=== PATIENT | male | born 2000 | race Caucasian/White ===

== ENCOUNTER 2022-07-30 13:58 | Inpatient (IN) ==
--- NOTE | 2022-07-30 14:33 | Emergency Department Note ---
Impression & Plan Psychosis, Anxiety, Acute paranoia ED Provider Note NAME: HARRIS STEVENS AGE: 22 SEX: M : 2000 ARRIVES VIA: [employer] INFORMANT: Patient, the police, the patient's significant other ED PROVIDER(S): Doroteo Hendrix DO CHIEF COMPLAINT: Psychiatric evaluation HPI: The patient is a 22-year-old male who presented to the emergency department with police for possible psychiatric condition. The patient does not give much history. The patient does answer questions but mostly mumbles a phrase over and over again, "[place]". The patient does have a history of psychosis in the past. He does take Depakote. It is unclear if the patient has been compliant with his outpatient medications. There was no reported trauma. There was no reported fever. There is been no reported vomiting. The patient himself states that he is not been eating or sleeping well. He states that he is urinating because of problems with his significant other. The patient is denying any suicidal or homicidal ideation. ROS: See above HPI for pertinent positives & negatives. A total of 10 systems reviewed and were otherwise negative. PAST MEDICAL HISTORY: See Below PAST SURGICAL HISTORY: See Below FAMILY HISTORY: See Below SOCIAL HISTORY: See Below HOME MEDICATIONS: See Below ALLERGIES: See Below VITALS: See Below PHYSICAL EXAMINATION: GENERAL: The patient is awake and alert. He is resting comfortably and seated on the bed. He is saying his phrase over and over again. EYES: The conjunctivae are clear. The pupils are round and reactive. EARS, NOSE, MOUTH AND THROAT: The nose is without any evidence of any deformity. NECK: The neck is nontender and supple. RESPIRATORY: Normal respiratory effort is noted there is no evidence of wheezing rhonchi or rales CARDIOVASCULAR: Regular rate and rhythm noted there no murmurs rubs or gallops normal S1 normal S2. GASTROINTESTINAL: The abdomen is soft. Abdomen is nontender. MUSCULOSKELETAL/EXTREMITIES: There is no evidence of gross deformity full range of motion is noted in the hips and shoulders. SKIN: There is no obvious evidence of any rash. There are no petechiae, pallor or cyanosis noted. NEUROLOGIC: Patient is awake alert and oriented x3 strength is symmetric patellar reflexes are 2+ bilaterally PSYCH: The patient makes poor eye contact mostly evaluation. Currently the patient is denying any suicidal homicidal ideation. MEDICAL DECISION MAKING: The patient is a 22-year-old male who presented to the emergency department for a mental health evaluation. The patient does have a history of psychosis. According to his significant other he has been acting erratic lately. The pat mane was brought to the emergency department by police. He was evaluated in the emergency department and medically cleared. Initially he was not willing to talk but eventually he was able to talk with the mental health upper caser. He was much more calm and agreeable to evaluation. At this time the patient is agreeable to voluntary admission. Bed search is currently underway. Triage Nursing notes reviewed. Prior medical records reviewed Vital Signs: reviewed and remarkable for elevated blood pressure. Differential diagnosis: Mood disorder, infection, hypoglycemia, electrolyte abnormalities, cardiac sources, intracerebral event, toxicologic, trauma, neurologic, as well as other pathologies. ER treatment provided: See below Diagnostics interpreted by me: ECG: none Laboratory studies: As stated above and show below. Imaging studies: See below Consultation(s): none Past Med/Surg History Social History Smoking Status: Unknown if ever smoked Preferred Language: Georgian Feels Safe at Home: Yes Allergies Allergies Allergy/AdvReac Type Severity Reaction Status Date / Time fluphenazine [From Prolixin] AdvReac Shakiness Verified 07/30/22 15:38 Home Meds Home Medications Medication Instructions Recorded Confirmed benztropine 2 mg PO DAILY 07/30/22 07/30/22 divalproex 500 mg tablet,delayed 500 mg PO BID 07/30/22 07/30/22 release (Depakote) Results & Data (ED) Vital Signs Vital Signs - 24 hr 07/30/22 14:16 07/30/22 14:16 Temperature 36.8 C Temperature Source Oral Pulse Rate 78 Respiratory Rate 18 18 Respiratory Effort / Characteristics Non-Labored Non-Labored Respiratory Depth Normal Normal Respiratory Pattern Regular Regular Blood Pressure 156/88 H Blood Pressure Mean 110 Blood Pressure Position Lying Pulse Oximetry 99 Oxygen Delivery Method Room Air Sepsis Recent Fever Within 48 Hours No Sepsis New/Unexplained Change in Mental Status No Sepsis Action Taken by Nursing No Action Required Home Medications Current Medication List: was personally reviewed by me Laboratory Data Attestation: I reviewed the patient's lab results. Result diagrams: 07/30/22 14:33 07/30/22 14:33 Lab Results 07/30/22 07/30/22 07/30/22 Range/Units 14:33 14:33 14:33 WBC 8.40 (4.8-10.8) K/ul RBC 4.69 (4.63-6.08) M/uL Hgb 15.5 (14.0-18.0) g/dl Hct 42.7 (40.1-51.0) % MCV 91.0 (80.0-100.0) fL MCH 33.0 (25.0-34.0) pg MCHC 36.3 H (32.0-36.0) g/dL RDW Std Deviation 38.0 (36.4-46.3) fL RDW Coeff of Dillon 11.4 L (11.5-14.5) % Plt Count 258 (130-400) K/uL MPV 9.7 (9.4-12.4) fL Immature Gran % (Auto) 0.1 % Neut % (Auto) 73.8 % Lymph % (Auto) 17.5 % [place] % (Auto) 7.9 % Eos % (Auto) 0.5 % Baso % (Auto) 0.2 % Neut # (Auto) 6.20 (1.4-6.5) K/uL Lymph # (Auto) 1.47 (1.2-3.4) K/uL [place] # (Auto) 0.66 (0.24-0.82) K/uL Eos # (Auto) 0.04 (0-0.50) K/uL Baso # (Auto) 0.02 (0-0.2) K/uL Immature Gran # (Auto) 0.01 (0.00-0.02) K/uL Sodium 139 (136-145) mmol/L Potassium 3.9 (3.5-5.1) mmol/L Chloride 106 (98-107) mmol/L Carbon Dioxide 26 (21-32) mmol/L Anion Gap 7 (3-11) BUN 14 (6-23) mg/dl Creatinine 0.93 (0.6-1.4) mg/dl Est Cr Clr Drug Dosing Not Reportable Est GFR ( Amer) 133.6 ml/min Est GFR (Non-Af Amer) 115.3 ml/min BUN/Creatinine Ratio 15.1 (10-20) Glucose 100 H (70-99(Fasting)) mg/dl Calcium 8.7 (8.5-10.1) mg/dl Total Bilirubin 0.6 (0.2-1.0) mg/dl AST 34 (13-39) U/L ALT 51 (7-52) U/L Alkaline Phosphatase 75 (34-104) U/L Total Protein 7.2 (6.0-8.3) gm/dl Albumin 4.4 (3.4-5.0) gm/dl Globulin 2.8 (2.5-4.0) gm/dl Albumin/Globulin Ratio 1.6 (0.9-2) TSH 1.776 (0.300-4.500) uIu/ml Urine Color Urine Appearance (Clear) Urine pH (4.5-7.5) Ur Specific [place] (1.000-1.030) Urine Protein (Negative) Urine Glucose (UA) (Negative) Urine Ketones (Negative) Urine Blood (Negative) Urine Nitrite (Negative) Urine Bilirubin (Negative) Urine Urobilinogen (Negative) Ur Leukocyte Esterase (Negative) Salicylates (3.0-30) mg/dl Urine Opiates Screen (Neg) Ur Methadone, Qual (Neg) Acetaminophen (10-30) ug/ml Urine Barbiturates (Neg) Valproic Acid (50-100) mcg/ml Ur Phencyclidine (PCP) (Neg) U Amphetamin/Meth Scrn (Neg) MDMA (Ecstasy) Screen (Neg) U Benzodiazepines Scrn (Neg) Ur Cocaine Metabolite (Neg) U Marijuana (THC) Screen (Neg) Ethyl Alcohol mg/dL (<10.0) mg/dl SARS-CoV-2, RNA, NAAT (NEGATIVE) 07/30/22 07/30/22 07/30/22 Range/Units 14:33 14:33 14:33 WBC (4.8-10.8) K/ul RBC (4.63-6.08) M/uL Hgb (14.0-18.0) g/dl Hct (40.1-51.0) % MCV (80.0-100.0) fL MCH (25.0-34.0) pg MCHC (32.0-36.0) g/dL RDW Std Deviation (36.4-46.3) fL RDW Coeff of Dillon (11.5-14.5) % Plt Count (130-400) K/uL MPV (9.4-12.4) fL Immature Gran % (Auto) % Neut % (Auto) % Lymph % (Auto) % [place] % (Auto) % Eos % (Auto) % Baso % (Auto) % Neut # (Auto) (1.4-6.5) K/uL Lymph # (Auto) (1.2-3.4) K/uL [place] # (Auto) (0.24-0.82) K/uL Eos # (Auto) (0-0.50) K/uL Baso # (Auto) (0-0.2) K/uL Immature Gran # (Auto) (0.00-0.02) K/uL Sodium (136-145) mmol/L Potassium (3.5-5.1) mmol/L Chloride (98-107) mmol/L Carbon Dioxide (21-32) mmol/L Anion Gap (3-11) BUN (6-23) mg/dl Creatinine (0.6-1.4) mg/dl Est Cr Clr Drug Dosing Est GFR ( Amer) ml/min Est GFR (Non-Af Amer) ml/min BUN/Creatinine Ratio (10-20) Glucose (70-99(Fasting)) mg/dl Calcium (8.5-10.1) mg/dl Total Bilirubin (0.2-1.0) mg/dl AST (13-39) U/L ALT (7-52) U/L Alkaline Phosphatase (34-104) U/L Total Protein (6.0-8.3) gm/dl Albumin (3.4-5.0) gm/dl Globulin (2.5-4.0) gm/dl Albumin/Globulin Ratio (0.9-2) TSH (0.300-4.500) uIu/ml Urine Color Yellow Urine Appearance Clear (Clear) Urine pH 6.0 (4.5-7.5) Ur Specific [place] 1.009 (1.000-1.030) Urine Protein Negative (Negative) Urine Glucose (UA) Negative (Negative) Urine Ketones Negative (Negative) Urine Blood Negative (Negative) Urine Nitrite Negative (Negative) Urine Bilirubin Negative (Negative) Urine Urobilinogen Negative (Negative) Ur Leukocyte Esterase Negative (Negative) Salicylates < 3.0 L (3.0-30) mg/dl Urine Opiates Screen (Neg) Ur Methadone, Qual (Neg) Acetaminophen < 3 L (10-30) ug/ml Urine Barbiturates (Neg) Valproic Acid 39 L (50-100) mcg/ml Ur Phencyclidine (PCP) (Neg) U Amphetamin/Meth Scrn (Neg) MDMA (Ecstasy) Screen (Neg) U Benzodiazepines Scrn (Neg) Ur Cocaine Metabolite (Neg) U Marijuana (THC) Screen (Neg) Ethyl Alcohol mg/dL < 10.0 (<10.0) mg/dl SARS-CoV-2, RNA, NAAT (NEGATIVE) 07/30/22 07/30/22 Range/Units 14:33 14:33 WBC (4.8-10.8) K/ul RBC (4.63-6.08) M/uL Hgb (14.0-18.0) g/dl Hct (40.1-51.0) % MCV (80.0-100.0) fL MCH (25.0-34.0) pg MCHC (32.0-36.0) g/dL RDW Std Deviation (36.4-46.3) fL RDW Coeff of [place] (11.5-14.5) % Plt Count (130-400) K/uL MPV (9.4-12.4) fL Immature Gran % (Auto) % Neut % (Auto) % Lymph % (Auto) % [place] % (Auto) % Eos % (Auto) % Baso % (Auto) % Neut # (Auto) (1.4-6.5) K/uL Lymph # (Auto) (1.2-3.4) K/uL [place] # (Auto) (0.24-0.82) K/uL Eos # (Auto) (0-0.50) K/uL Baso # (Auto) (0-0.2) K/uL Immature Gran # (Auto) (0.00-0.02) K/uL Sodium (136-145) mmol/L Potassium (3.5-5.1) mmol/L Chloride (98-107) mmol/L Carbon Dioxide (21-32) mmol/L Anion Gap (3-11) BUN (6-23) mg/dl Creatinine (0.6-1.4) mg/dl Est Cr Clr Drug Dosing Est GFR ( Amer) ml/min Est GFR (Non-Af Amer) ml/min BUN/Creatinine Ratio (10-20) Glucose (70-99(Fasting)) mg/dl Calcium (8.5-10.1) mg/dl Total Bilirubin (0.2-1.0) mg/dl AST (13-39) U/L ALT (7-52) U/L Alkaline Phosphatase (34-104) U/L Total Protein (6.0-8.3) gm/dl Albumin (3.4-5.0) gm/dl Globulin (2.5-4.0) gm/dl Albumin/Globulin Ratio (0.9-2) TSH (0.300-4.500) uIu/ml Urine Color Urine Appearance (Clear) Urine pH (4.5-7.5) Ur Specific [place] (1.000-1.030) Urine Protein (Negative) Urine Glucose (UA) (Negative) Urine Ketones (Negative) Urine Blood (Negative) Urine Nitrite (Negative) Urine Bilirubin (Negative) Urine Urobilinogen (Negative) Ur Leukocyte Esterase (Negative) Salicylates (3.0-30) mg/dl Urine Opiates Screen Neg (Neg) Ur Methadone, Qual Neg (Neg) Acetaminophen (10-30) ug/ml Urine Barbiturates Neg (Neg) Valproic Acid (50-100) mcg/ml Ur Phencyclidine (PCP) Neg (Neg) U Amphetamin/Meth Scrn Neg (Neg) MDMA (Ecstasy) Screen Neg (Neg) U Benzodiazepines Scrn Neg (Neg) Ur Cocaine Metabolite Neg (Neg) U Marijuana (THC) Screen Neg (Neg) Ethyl Alcohol mg/dL (<10.0) mg/dl SARS-CoV-2, RNA, NAAT NEGATIVE (NEGATIVE) Discharge Plan Visit Data Chief Complaint: Mental Health Evaluation Stated Complaint: [facility] ED Provider: Partha Gaona Discharge Problem: Psychosis, Anxiety, Acute paranoia Patient Disposition: Still a Patient Condition: Good Discharge Instructions Collin/Other Patient Handouts: ED Psychosis Activity Restrictions/Additional Instructions: Continue all medications as prescribed. Call your primary therapist to schedule a follow-up appointment for soon as possible. Call crisis or return the emergency department immediately if symptoms change worsen or the need arises. Forms Stand Alone Forms: My [facility], Suicide Prevention Resources Prescriptions Prescriptions: No Action benztropine 2 mg PO DAILY divalproex [Depakote] 500 mg Tablet,Delayed Release (Dr/Ec) 500 mg PO BID Referrals Referrals: PCP,NO [Primary Care Provider] -
[2022-07-30 14:45] LABS: Appearance Urine Clear (Clear); Bilirubin Urine Negative (Negative); Blood Urine Negative (Negative); Color Urine Yellow; Glucose Urine UA Negative (Negative); Ketones Urine Negative (Negative); Leukocyte Esterase Urine Negative (Negative); Nitrite Urine Negative (Negative); Protein Urine Negative (Negative); Specific Gravity Urine 1.009 (1.000-1.030); Urobilinogen Urine Negative (Negative)
[2022-07-30 14:48] LABS: Basophils # (auto) 0.02 K/uL (0-0.2); Basophils % (auto) 0.2 %; Eosinophils # (auto) 0.04 K/uL (0-0.50); Eosinophils % (auto) 0.5 %; Hematocrit (blood only) 42.7 % (40.1-51.0); Hemoglobin 15.5 g/dl (14.0-18.0); Immature Granulocytes # (auto) 0.01 K/uL (0.00-0.02); Immature Granulocytes % (auto) 0.1 %; Lymphocytes # (auto) 1.47 K/uL (1.2-3.4); Lymphocytes % (auto) 17.5 %; Mean Corpuscular Hgb Conc 36.3 g/dL (32.0-36.0); Mean Platelet Volume 9.7 fL (9.4-12.4); Monocytes # (auto) 0.66 K/uL (0.24-0.82); Monocytes % (auto) 7.9 %; Neutrophils % (auto) 73.8 %; Platelet Count 258 K/uL (130-400); RDW Coefficient of Variation 11.4 % (11.5-14.5); Red Blood Count 4.69 M/uL (4.63-6.08)
[2022-07-30 15:35] LABS: Acetaminophen < 3 ug/ml (10-30); Salicylate < 3.0 mg/dl (3.0-30); Valproic Acid 39 mcg/ml (50-100)
[2022-07-30 15:39] LABS: Alanine Aminotransferase 51 U/L (7-52); Albumin Globulin Ratio 1.6 (0.9-2); Albumin Level 4.4 gm/dl (3.4-5.0); Alkaline Phosphatase 75 U/L (34-104); Anion Gap 7 (3-11); Aspartate Aminotransferase 34 U/L (13-39); BUN Creatinine Ratio 15.1 (10-20); Bilirubin,Total 0.6 mg/dl (0.2-1.0); Blood Urea Nitrogen 14 mg/dl (6-23); Calcium 8.7 mg/dl (8.5-10.1); Carbon Dioxide 26 mmol/L (21-32); Chloride 106 mmol/L (98-107); Est GFR (African American) 133.6 ml/min; Est GFR (Non-African American) 115.3 ml/min; Globulin 2.8 gm/dl (2.5-4.0); Glucose 100 mg/dl (70-99(Fasting)); Potassium 3.9 mmol/L (3.5-5.1); Sodium 139 mmol/L (136-145); Total Protein 7.2 gm/dl (6.0-8.3)
[2022-07-30 15:58] LABS: Amphetamines+Metham, Urine Neg (Neg); Barbiturates, Urine Neg (Neg); Benzodiazepine, Urine Neg (Neg); Cocaine, Urine Neg (Neg); MDMA (Ecstacy), Urine Neg (Neg); Methadone, Urine Neg (Neg); Opiate, Urine Neg (Neg); Phencyclidine, Urine Neg (Neg)
--- NOTE | 2022-07-30 16:57 | Emergency Department Note ---
ED Visit Note Patient is a 22-year-old male with past medical history of psychosis and paranoia brought in by police. Patient was seen evaluated by Dr. Hendrix and medically cleared. Currently no grounds for 302 but is agreeable to come in on 201. Patient was accepted to 3 S. on a 201 at 520PM. . : Psychosis Qualifiers: Psychosis type: unspecified psychosis type Qualified Code(s): F29 - Unspecified psychosis not due to a substance or known physiological condition
[2022-07-30] MEDS ORDERED: hydrOXYzine HCl 25 MG TAB PO PRN ×2 (17:47)
[2022-07-30] MEDS ORDERED: BISMUTH SUBSALICYLATE LIQD 236 ML PO PRN (17:47)
[2022-07-30] MEDS ORDERED: SODIUM CHLORIDE 0.65% NA SOLN 45 ML (OCEAN) PRN (17:47)
[2022-07-30] MEDS ORDERED: MAGNESIUM HYDROXIDE SUSP 30 ML UDC PO PRN (17:47)
[2022-07-30] MEDS ORDERED: ALUMINUM/MAGNESIUM SUSP 30 ML UDC PO PRN (17:47)
[2022-07-30] MEDS ORDERED: ACETAMINOPHEN 325 MG TAB PO PRN (17:47)
[2022-07-30] MEDS ORDERED: OLANZapine 5 MG TABLET PO PRN (17:49)
[2022-07-30] MEDS ORDERED: LORazepam 0.5 MG TAB PO PRN (17:50)
[2022-07-30] MEDS ORDERED: DIVALPROEX EXTENDED RELEASE 500 MG TAB PO ONE (21:00)
--- NOTE | 2022-07-31 09:43 | History & Physical ---
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 Diagnostically consistent with unspecified psychosis with differential including schizophrenia (>6 mo since symptom onset, most likely) vs delusional disorder vs carissa (decreased sleep but no evidence for psychomotor activation) vs MDD with psychotic features (but no evidence for depression) vs substance-induced (but denies any recent use and UDS negative) vs 2/2 medical condition (but no n eurological symptoms and labwork and ED workup all normal). The patient is deemed unstable and requires psychiatric hospitalization for diagnostic clarification, safety and stabilization, medication management and development of further coping skills. Discussed medication treatment options as able given his level of paranoia. Discussed risks, benefits and alternatives. Patient would like to start and consented to olanzapine for anxiety, psychosis and sleep. Reviewed side effects including but not limited to: movement (TD, NMS), cardiac (QTc prolongation), and metabolic (stroke, insulin resistance). No evidence for abnormal movements, AIMS score of 0. Will hold off on fasting lipid and glucose labwork until paranoia about blood draws lessens. He also consents to continuing with Depakote and labs of CBC with diff, LFTs, electrolytes and weight were preformed and reviewed and normal with exception of elevated BMI. Reviewed side effects including but not limited to: liver damage, need for routine blood work monitoring and weight gain. MNPR due to paranoia and hx of agitation prior to ED arrival (1) Unspecified psychosis not due to a substance or known physiological c ondition: (2) Psychosis: Psychosis type: unspecified psychosis type Qualified Code(s): F29 - Unspecified psychosis not due to a substance or known physiological condition (3) Anxiety: (4) Acute paranoia: Plan 07/31/22: The patient [facility]) on q15 min checks (behavioral with suicide precautions) for safety. The patient will participate in group, recreational, and milieu therapies and will be offered additional individual and family sessions as clinically appropriate. 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, willing to take medications, good rapport with his outpatient providers Needs: medication adjustments, diagnostic clarification, additional coping skills, safety and stabilization Suicide Risk Level Suicide Risk Level: Moderate (q15 min suicide checks) (denies SI and depression but experiencing some type of AH and paranoia which increases risk of impulsivity but he feels safe and contracts to let nursing know if he feels unsafe, develops SI or feels he needs more support) Risk Factors Assessment Male: Yes : Yes Do You Have Access To A Gun?: No Mental Health Diagnoses: Yes Previous Attempt: No Family History of Suicide: Yes (hx attempt ) Previous Psychiatric Hospitalization: Yes Hopelessness: No Protective Factors Assessment 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 Chief Complaint "Is everything I share with you secure, there aren't any cameras in here right?". History of Present Illness Pj was brought to the ED by police after his girlfriend called them for increasing agitation and paranoia over the last few days including beliefs that he is being followed and that he might be involved in a [employer] operation. Shares concerns he could be a high profile witness involved with the FBI or [employer] Service. He notes this has been difficult as he's been recieving more "triggers" lately, which come to him through "voices, places, people" and has been trying to avoid "listening to those triggers" as this worsens his anxiety. Reports extensive past trauma and wonders if this has lead to his anxie ty and "very very many personality disorders" but does not feel the past diagnosis of psychosis is accurate and states "I know I don't have schizophrenia". During his first episode of psychosis this summer he was hospitalized at [facility] for ~1 month and started on fluphenazine and Depakote. States that while there he developed restless on fluphenazine so this was stopped (seems it may have caused significant akathisia and is now listed as an allergy) and then self-tapered himself off Depakote about 1 month ago. Given worsening sleep, appetite and anxiety over the last few days he restarted h imself on Depakote about 3 days ago with valproic acid level of 39 mcg/ml. He is suspicious about the blood work he gave in the ED noting they "took a lot of vials" but reassured when we reviewed all the testing'abwork they did. He feels his main issue is anxiety and desires to be out of the hospital by Wednesday. Further information per ED CM note from 07/30/22: "Pt is calm and cooperative throughout, though does answer some questions with the phrase "Operation Spec." Pt denies history. Pt frequently refers to Operation [employer] when discussing stressors, prior trauma history, etc. 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 Meds are prescribed by JASEN Arnold with [facility]. Therapist is Edward Donald in [place]. Pt was inpatient for the first time at the end of January at [facility] under similar circumstances, though per documentation provided had decompensated further at that time. Pt states he requested to taper off his meds approximately 1 month ago but did restart his Depakote about 3 days ago. Pt has not consulted with his prescriber since requesting the taper. Pt states he sleeps approximately 4-6 hours per night and his girlfriend, Park, states pt does sometimes talk during his sleep. Pt states his anxiety has been up and down but denies panic attacks. He does endorse constant feelings of overwhelm and pressure but does not elaborate, answering only with the aforementioned "Operation [employer]." Denies SI/HI/AH/VH. Despite adamantly denying AH/VH, patient does, with prompting from his girlfriend, state that he sometimes has memories of people telling him to do things which he does follow through with. Denies self-injury. Denies drug or alcohol use. Pt does have a complex trauma history but will not elaborate other than to say, "All the worst kinds you can imagine." Pts girlfriend states pt has been increasingly paranoid and when out at stores believes random people are following him, etc." Past Psychiatric History Current Psychiatric Diagnosis: Unspecified Pschosis Outpatient Services: psychiatry with Sara Garcia, LEATHER TOOLER with [facility]; Therapist is Edward Donald Previous Psych Admissions: Eh in December-January 2022 for unspecified psychosis Do You Have Access To A Gun?: No History of Previous Suicide Attempt: No Past Medication Trials: fluphenazine-caused akathisia, cogentin for side effects to fluphenazine Past Head Trauma/Neuro History History of Concussion/Seizure: Yes (no hx seizures, hx concussion at age 9, did not require med tx) Allergies Allergy/AdvReac Type Severity Reaction Status Date / Time fluphenazine [From Prolixin] AdvReac Shakiness Verified 07/30/22 15:38 Home Medications Medication Instructions Recorded Confirmed Type benztropine 2 mg PO DAILY 07/30/22 07/30/22 History divalproex 500 mg tablet,delayed 500 mg PO BID 07/30/22 07/30/22 History release (Depakote) Family History Family History of: Depression (father) and Suicide Attempts (father) Alcohol History Hx of Alcohol Use Over the Past 12 Months: Yes (Prior hx of binge drinking, not in at least a month) AUDIT Total Score: 4 Smoking Use Have You Smoked or Used Tobacco Products in the Last 30 Days: No Smoking Status: Never smoker Substance History Hx of Prescription Med Misuse Over the Past 12 Months: No Hx of Over the Counter Med Misuse Over the Past 12 Months: No Hx of Inhalent Misuse Over the Past 12 Months: No Hx of Organic Substance Use Over the Past 12 Months: Yes (THC, not since last hospitalization) Hx of Illegal Substances/Street Drug Use Over Past 12 Months: No Problems as a Result of Past Substance Use: None Identified Personal History Living Arrangements: Apartment Childhood: From [facility], parents and has older brother and younger sister Highest Grade Completed: College Employment Status: Student Marital Status: Living w/ Signif. Other Number Of Children: 0 Beliefs That Will Affect Care: None Current Legal Problems: No Hx Legal Problems: No Hx Traumatic Life Events: Yes Patient History Social History Smoking Status: Never smoker Preferred Language: Romanian Communication Ability: Effective Plant Propagator Required: No Beliefs That Will Affect Care: None Feels Safe at Home: Yes Assistive Devices: Glasses Review of Systems Review of Systems: All systems reviewed & are unremarkable except as noted in HPI & below Physical Exam Psychiatric: Orientation: alert and oriented x 3 Apperance: appropriately dressed and appropriately groomed Eye Contact: good eye contact Motor Behavior: no abnormal motor movements Speech: normal rate/rhythm/volume of speech Affect: + constricted affect Mood: + anxious mood Thought Process: goal directed thought process Thought Content: + paranoid, + delusions and + ideas of reference Suicidal Thoughts: denies suicidal thoughts Homicidal Thoughts: denies homicidal thoughts Hallucinations: + auditory hallucinations; no visual hallucinations Cognition: recent memory grossly intact, remote memory grossly intact, attention grossly intact and language grossly intact Estimated Intelligence: consistent with education level Insight: + poor insight Judgement: + limited judgement Vital Signs (Past 24 Hours): Last Vital Signs Temp 36.4 C 07/31/22 06:30 Pulse 87 07/31/22 06:30 Resp 16 07/31/22 06:36 BP 107/74 07/31/22 06:36 Pulse Ox 100 07/30/22 17:53 O2 Del Method 07/30/22 17:53 Exam Statement: A physical exam was performed in the ED by Dr. Hendrix for the purposes of medical clearance. I accept that physical as correct and adequate for the purposes of the inpatient physical exam. Results & Data ([facility]) Laboratory Results Laboratory Results - last 24 hr 07/30/22 07/30/22 07/30/22 14:33 14:33 14:33 WBC 8.40 RBC 4.69 Hgb 15.5 Hct 42.7 MCV 91.0 MCH 33.0 MCHC 36.3 H RDW Std Deviation 38.0 RDW Coeff of Dillon 11.4 L Plt Count 258 MPV 9.7 Immature Gran % (Auto) 0.1 Neut % (Auto) 73.8 Lymph % (Auto) 17.5 Wise % (Auto) 7.9 Eos % (Auto) 0.5 Baso % (Auto) 0.2 Neut # (Auto) 6.20 Lymph # (Auto) 1.47 Wise # (Auto) 0.66 Eos # (Auto) 0.04 Baso # (Auto) 0.02 Immature Gran # (Auto) 0.01 Sodium 139 Potassium 3.9 Chloride 106 Carbon Dioxide 26 Anion Gap 7 BUN 14 Creatinine 0.93 Est Cr Clr Drug Dosing Not Reportable Est GFR ( Amer) 133.6 Est GFR (Non-Af Amer) 115.3 BUN/Creatinine Ratio 15.1 Glucose 100 H Calcium 8.7 Total Bilirubin 0.6 AST 34 ALT 51 Alkaline Phosphatase 75 Total Protein 7.2 Albumin 4.4 Globulin 2.8 Albumin/Globulin Ratio 1.6 TSH 1.776 Urine Color Urine Appearance Urine pH Ur Specific [place] Urine Protein Urine Glucose (UA) Urine Ketones Urine Blood Urine Nitrite Urine Bilirubin Urine Urobilinogen Ur Leukocyte Esterase Salicylates Urine Opiates Screen Ur Methadone, Qual Acetaminophen Urine Barbiturates Valproic Acid Ur Phencyclidine (PCP) U Amphetamin/Meth Scrn MDMA (Ecstasy) Screen U Benzodiazepines Scrn Ur Cocaine Metabolite U Marijuana (THC) Screen Ethyl Alcohol mg/dL SARS-CoV-2, RNA, NAAT 07/30/22 07/30/22 07/30/22 14:33 14:33 14:33 WBC RBC Hgb Hct MCV MCH MCHC RDW Std Deviation RDW Coeff of [place] Plt Count MPV Immature Gran % (Auto) Neut % (Auto) Lymph % (Auto) Wise % (Auto) Eos % (Auto) Baso % (Auto) Neut # (Auto) Lymph # (Auto) Wise # (Auto) Eos # (Auto) Baso # (Auto) Immature Gran # (Auto) Sodium Potassium Chloride Carbon Dioxide Anion Gap BUN Creatinine Est Cr Clr Drug Dosing Est GFR ( Amer) Est GFR (Non-Af Amer) BUN/Creatinine Ratio Glucose Calcium Total Bilirubin AST ALT Alkaline Phosphatase Total Protein Albumin Globulin Albumin/Globulin Ratio TSH Urine Color Yellow Urine Appearance Clear Urine pH 6.0 Ur Specific [place] 1.009 Urine Protein Negative Urine Glucose (UA) Negative Urine Ketones Negative Urine Blood Negative Urine Nitrite Negative Urine Bilirubin Negative Urine Urobilinogen Negative Ur Leukocyte Esterase Negative Salicylates < 3.0 L Urine Opiates Screen Ur Methadone, Qual Acetaminophen < 3 L Urine Barbiturates Valproic Acid 39 L Ur Phencyclidine (PCP) U Amphetamin/Meth Scrn MDMA (Ecstasy) Screen U Benzodiazepines Scrn Ur Cocaine Metabolite U Marijuana (THC) Screen Ethyl Alcohol mg/dL < 10.0 SARS-CoV-2, RNA, NAAT 07/30/22 07/30/22 14:33 14:33 WBC RBC Hgb Hct MCV MCH MCHC RDW Std Deviation RDW Coeff of [place] Plt Count MPV Immature Gran % (Auto) Neut % (Auto) Lymph % (Auto) Wise % (Auto) Eos % (Auto) Baso % (Auto) Neut # (Auto) Lymph # (Auto) Wise # (Auto) Eos # (Auto) Baso # (Auto) Immature Gran # (Auto) Sodium Potassium Chloride Carbon Dioxide Anion Gap BUN Creatinine Est Cr Clr Drug Dosing Est GFR ( Amer) Est GFR (Non-Af Amer) BUN/Creatinine Ratio Glucose Calcium Total Bilirubin AST ALT Alkaline Phosphatase Total Protein Albumin Globulin Albumin/Globulin Ratio TSH Urine Color Urine Appearance Urine pH Ur Specific [place] Urine Protein Urine Glucose (UA) Urine Ketones Urine Blood Urine Nitrite Urine Bilirubin Urine Urobilinogen Ur Leukocyte Esterase Salicylates Urine Opiates Screen Neg Ur Methadone, Qual Neg Acetaminophen Urine Barbiturates Neg Valproic Acid Ur Phencyclidine (PCP) Neg U Amphetamin/Meth Scrn Neg MDMA (Ecstasy) Screen Neg U Benzodiazepines Scrn Neg Ur Cocaine Metabolite Neg U Marijuana (THC) Screen Neg Ethyl Alcohol mg/dL SARS-CoV-2, RNA, NAAT NEGATIVE Current Inpatient Medications Current Inpatient Medications: Current Inpatient Medications Acetaminophen (Acetaminophen 325 Mg Tab) 650 mg PO Q4H PRN PRN Reason: Headache or Minor Fever Stop: 08/29/22 17:46 Al Hydrox/Mg Hydrox/Simethicone (Aluminum/Magnesium Susp 30 Ml Udc) 30 ml PO Q4H PRN PRN Reason: GI Upset Stop: 08/29/22 17:46 Bismuth Subsalicylate (Bismuth Subsalicylate Liqd 236 Ml) 15 ml PO PRN PRN PRN Reason: Loose Stool Stop: 08/29/22 17:46 Hydroxyzine HCl (Hydroxyzine Hcl 25 Mg Tab) 50 mg PO HSZ PRN PRN Reason: Insomnia Stop: 08/29/22 17:46 Last Admin: 07/30/22 23:09 Dose: 50 mg Hydroxyzine HCl (Hydroxyzine Hcl 25 Mg Tab) 25 mg PO Q4H PRN PRN Reason: Anxiety Stop: 08/29/22 17:46 Lorazepam (Lorazepam 0.5 Mg Tab) 0.5 mg PO Q6 PRN PRN Reason: Anxiety Stop: 08/29/22 17:49 Last Admin: 07/30/22 23:29 Dose: 0.5 mg Magnesium Hydroxide (Magnesium Hydroxide Susp 30 Ml Udc) 30 ml PO DAILY PRN PRN Reason: Constipation Stop: 08/29/22 17:46 Olanzapine (Olanzapine 5 Mg Tablet) 5 mg PO BID PRN PRN Reason: anxiety/agitation Stop: 08/29/22 17:48 Sodium Chloride (Sodium Chloride 0.65% Na Soln 45 Ml ([place])) 1 - 2 sprays NA PRN PRN PRN Reason: Nasal Dryness/Congestion Stop: 08/29/22 17:46
[2022-07-31] MEDS ORDERED: OLANZAPINE 2.5 MG TAB PO PRN (11:25)
[2022-07-31] MEDS: DIVALPROEX DELAY RELEASE 500 MG TAB PO SCH ×2 (12:39→20:39)
[2022-07-31] MEDS ORDERED: OLANZapine 5 MG TABLET PO SCH (22:00)
[2022-08-01] MEDS: DIVALPROEX DELAY RELEASE 500 MG TAB PO SCH ×2 (09:29→21:01)
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
[2022-08-01] MEDS ORDERED: OLANZapine 5 MG TABLET PO PRN (13:57)
[2022-08-01] MEDS: BUTT PASTE (ZINC OXIDE 16%) 171 APPLN/57 GM JAR EXT SCH ×2 (15:06→21:03)
[2022-08-01] MEDS ORDERED: BUTT PASTE (ZINC OXIDE 16%) 171 APPLN/57 GM JAR EXT SCH (21:00)
[2022-08-01] MEDS: OLANZapine 10 MG TAB PO SCH (21:02)
[2022-08-02] MEDS: DIVALPROEX DELAY RELEASE 500 MG TAB PO SCH (07:51)
[2022-08-02] MEDS: BUTT PASTE (ZINC OXIDE 16%) 171 APPLN/57 GM JAR EXT SCH ×2 (07:52→12:39)
[2022-08-02] MEDS: TERBINAFINE CR 30 GM TUBE EXT SCH ×2 (12:39→21:37)
--- NOTE | 2022-08-02 17:01 | Psychiatric Progress Note ---
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 Diagnostically consistent with unspecified psychosis with differential including schizophrenia (>6 mo since symptom onset, most likely) vs delusional disorder vs carissa (decreased sleep but no evidence for psychomotor activation) vs MDD with psychotic features (but no evidence for depression) vs substance-induced (but denies any recent use and UDS negative) vs 2/2 medical condition (but no n eurological symptoms and labwork and ED workup all normal). The patient is deemed unstable and requires psychiatric hospitalization for diagnostic clarification, safety and stabilization, medication management and development of further coping skills. MNPR due to paranoia and hx of agitation prior to ED arrival 08/02/22: as per Dr. Lam above. Less delusional today in that able to suppress and be redirected in conversation (1) Psychosis: (2) Unspecified psychosis not due to a substance or known physiological condition: (3) Anxiety: (4) Acute paranoia: Plan 08/02/22: agreed to shift to Depakote ER 1500 mg hs for ease of dosing with Zyprexa. Agrees to remain hospitalized with notice in place pending meeting with girlfriend and additional safety planning. 08/01/22: he rescinded 72 hr notice. Will increase Zyprexa to 10 mg hs. presentation consistent with primary thought disorder. Depakote dosing will need addressed as patient more receptive. 07/31/22: The patient was admitted to the [facility] ([facility] mental health unit) on q15 min checks (behavioral with suicide precautions) for safety. The patient will participate in group, recreational, and milieu therapies and will be offered additional individual and family sessions as clinically appropriate. 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, willing to take medications, good rapport with his outpatient providers Needs: medication adjustments, diagnostic clarification, additional coping skills, safety and stabilization Suicide Risk Level Suicide Risk Level: Moderate (q15 min suicide checks) Risk Factors Assessment Male: Yes : Yes Do You Have Access To A Gun?: No Mental Health Diagnoses: Yes Previous Attempt: No Family History of Suicide: Yes (hx attempt ) Previous Psychiatric Hospitalization: Yes Hopelessness: No Protective Factors Assessment 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 Chief Complaint "I feel like I was overreacting to the urgency of everything and this isn't necessarily the place to fully work out [employer]". Review of Systems Sleep Information Total Hours of Sleep: 6.5 Meal Information Percent Meal Consumed - Breakfast: 100 Percent Meal Consumed - Lunch: 100 Percent Meal Consumed - Dinner: 100 Subjective Subjective Patient was seen & assessed and interval progress reviewed with nursing and social work. Patient is off task in process groups. Submitted another 72 hr notice. Sleep continues to improve. He now has insight into need for medication "for awhile, to keep me in my program" Agreed to sign DAVID for meeting with girlfriend. Physical Exam Psychiatric Orientation: alert and oriented x 3 Apperance: appropriately dressed and appropriately groomed Eye Contact: good eye contact Motor Behavior: no abnormal motor movements Speech: normal rate/rhythm/volume of speech Affect: euthymic affect Mood: + anxious mood Thought Process: goal directed thought process Thought Content: + paranoid and + delusions Suicidal Thoughts: denies suicidal thoughts Homicidal Thoughts: denies homicidal thoughts Hallucinations: no auditory hallucinations and no visual hallucinations Cognition: attention grossly intact and language grossly intact Estimated Intelligence: consistent with education level Insight: + limited insight Judgement: + limited judgement Vital Signs (Past 24 Hours) Last Vital Signs Temp 36.8 C 08/02/22 06:38 Pulse 86 08/02/22 06:39 Resp 16 08/02/22 06:38 BP 137/79 08/02/22 06:39 Pulse Ox 100 07/30/22 17:53 O2 Del Method 07/30/22 17:53 Results & Data ([facility]) Current Inpatient Medications Current Inpatient Medications: Current Inpatient Medications Acetaminophen (Acetaminophen 325 Mg Tab) 650 mg PO Q4H PRN PRN Reason: Headache or Minor Fever Stop: 08/29/22 17:46 Al Hydrox/Mg Hydrox/Simethicone (Aluminum/Magnesium Susp 30 Ml Udc) 30 ml PO Q4H PRN PRN Reason: GI Upset Stop: 08/29/22 17:46 Bismuth Subsalicylate (Bismuth Subsalicylate Liqd 236 Ml) 15 ml PO PRN PRN PRN Reason: Loose Stool Stop: 08/29/22 17:46 Divalproex Sodium (Divalproex Extended Release 500 Mg Tab) 1,000 mg PO ONE ONE Stop: 08/02/22 22:01 Divalproex Sodium (Divalproex Extended Release 500 Mg Tab) 1,500 mg PO HS [facility] Stop: 09/02/22 21:59 Hydroxyzine HCl (Hydroxyzine Hcl 25 Mg Tab) 25 mg PO Q4H PRN PRN Reason: Anxiety Stop: 08/29/22 17:46 Lorazepam (Lorazepam 0.5 Mg Tab) 0.5 mg PO Q6 PRN PRN Reason: Anxiety Stop: 08/29/22 17:49 Last Admin: 07/30/22 23:29 Dose: 0.5 mg Magnesium Hydroxide (Magnesium Hydroxide Susp 30 Ml Udc) 30 ml PO DAILY PRN PRN Reason: Constipation Stop: 08/29/22 17:46 Olanzapine (Olanzapine 10 Mg Tab) 10 mg PO HS LEEROY Stop: 08/31/22 21:59 Last Admin: 08/01/22 21:02 Dose: 10 mg Olanzapine (Olanzapine 5 Mg Tablet) 5 mg PO BID PRN PRN Reason: anxiety/agitation/insomnia Stop: 08/29/22 17:48 Petrolatum (Butt Paste (Zinc Oxide 16%) 171 Appln/57 Gm Jar) 1 appln EXT BID LEEROY Stop: 08/31/22 14:04 Last Admin: 08/02/22 12:39 Dose: 1 appln Sodium Chloride (Sodium Chloride 0.65% Na Soln 45 Ml ([place])) 1 - 2 sprays NA PRN PRN PRN Reason: Nasal Dryness/Congestion Stop: 08/29/22 17:46 Terbinafine HCl (Terbinafine Cr 30 Gm Tube) 1 appln EXT BID LEEROY Stop: 09/01/22 10:59 Last Admin: 08/02/22 12:39 Dose: 1 appln Mental Health & Subst Abuse Tx Psychiatrist Name of Psychiatrist: JASEN Shahid Psychiatrist's Date of Appointment with Psychiatrist: 08/27/21 Time of Appointment with Psychiatrist: 2:20 PM Psychiatric Appointment Comment: This appointment is via telehealth. Therapist Name of Therapist: Edward Donald Therapist's Time of Therapist Appointment: [address], [address], [place] [address] Therapy Appointment Comment: Please call to schedule after discharge. Post Discharge Appointments Primary Care Physician Name Of Family Doctor: [facility] [place] [facility] Time of Appointment with PCP: Please follow-up with your PCP as needed. Provider Appointment Comment: [facility] JOHN (1) Psychosis Psychosis type: unspecified psychosis type Qualified Code(s): F29 - Unspecified psychosis not due to a substance or known physiological condition
[2022-08-02] MEDS: OLANZapine 10 MG TAB PO SCH (21:38)
[2022-08-02] MEDS ORDERED: DIVALPROEX EXTENDED RELEASE 500 MG TAB PO ONE (22:00)
[2022-08-03] MEDS: TERBINAFINE CR 30 GM TUBE EXT SCH ×2 (09:09→21:01)
[2022-08-03] MEDS: BUTT PASTE (ZINC OXIDE 16%) 171 APPLN/57 GM JAR EXT SCH ×2 (09:09→21:01)
--- NOTE | 2022-08-03 13:46 | Psychiatric Progress Note ---
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 Diagnostically consistent with unspecified psychosis with differential including schizophrenia (>6 mo since symptom onset, most likely) vs delusional disorder vs carissa (decreased sleep but no evidence for psychomotor activation) vs MDD with psychotic features (but no evidence for depression) vs substance-induced (but denies any recent use and UDS negative) vs 2/2 medical condition (but no n eurological symptoms and labwork and ED workup all normal). MNPR due to hx paranoia and hx of agitation prior to ED arrival 08/03/22: improving (1) Psychosis: (2) Unspecified psychosis not due to a substance or known physiological condition: (3) Anxiety: (4) Acute paranoia: Plan 08/03/22: fasting labs in am with Depakote level which will not be fully accurate given time and dosing formulation shift. 08/02/22: agreed to shift to Depakote ER 1500 mg hs for ease of dosing with Zyprexa. Agrees to remain hospitalized with notice in place pending meeting with girlfriend and additional safety planning. 08/01/22: he rescinded 72 hr notice. Will increase Zyprexa to 10 mg hs. presentation consistent with primary thought disorder. Depakote dosing will need addressed as patient more receptive. 07/31/22: The patient was admitted to the [facility] ([facility]) on q15 min checks (behavioral with suicide precautions) for safety. The patient will participate in group, recreational, and milieu therapies and will be offered additional individual and family sessions as clinically appropriate. 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, willing to take medications, good rapport with his outpatient providers Needs: medication adjustments, diagnostic clarification, additional coping skills, safety and stabilization Suicide Risk Level Suicide Risk Level: Moderate (q15 min suicide checks) Risk Factors Assessment Male: Yes : Yes Do You Have Access To A Gun?: No Mental Health Diagnoses: Yes Previous Attempt: No Family History of Suicide: Yes (hx attempt ) Previous Psychiatric Hospitalization: Yes Hopelessness: No Protective Factors Assessment 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 Chief Complaint "I'd still like to leave tomorrow but I can deal with all that other stuff outpatient." Review of Systems Sleep Information Total Hours of Sleep: 6 Sleep Comments: Woke up thinking it was later in the morning; checked the time and returned to bed Meal Information Percent Meal Consumed - Breakfast: 100 Percent Meal Consumed - Lunch: 100 Percent Meal Consumed - Dinner: 100 Subjective Subjective Patient was seen & assessed and interval progress reviewed with treatment team. positive meeting with girlfriend who reports OK with return home if agreeing to take medications. No agitation here. Thoughts much more organized and able to self-redirect his delusional thoughts. Less fixed. [address]. Physical Exam Psychiatric Orientation: alert and oriented x 3 Apperance: appropriately dressed and appropriately groomed Eye Contact: good eye contact Motor Behavior: no abnormal motor movements Speech: normal rate/rhythm/volume of speech Affect: euthymic affect Mood: + anxious mood Thought Process: goal directed thought process Thought Content: + delusions Suicidal Thoughts: denies suicidal thoughts Homicidal Thoughts: denies homicidal thoughts Hallucinations: no auditory hallucinations and no visual hallucinations Cognition: attention grossly intact and language grossly intact Insight: + limited insight Judgement: + limited judgement Vital Signs (Past 24 Hours) Last Vital Signs Temp 36.4 C L 08/03/22 06:37 Pulse 73 08/03/22 06:41 Resp 73 H 08/03/22 06:41 BP 132/84 08/03/22 06:41 Pulse Ox 100 07/30/22 17:53 O2 Del Method 07/30/22 17:53 Results & Data ([facility]) Current Inpatient Medications Current Inpatient Medications: Current Inpatient Medications Acetaminophen (Acetaminophen 325 Mg Tab) 650 mg PO Q4H PRN PRN Reason: Headache or Minor Fever Stop: 08/29/22 17:46 Al Hydrox/Mg Hydrox/Simethicone (Aluminum/Magnesium Susp 30 Ml Udc) 30 ml PO Q4H PRN PRN Reason: GI Upset Stop: 08/29/22 17:46 Bismuth Subsalicylate (Bismuth Subsalicylate Liqd 236 Ml) 15 ml PO PRN PRN PRN Reason: Loose Stool Stop: 08/29/22 17:46 Divalproex Sodium (Divalproex Extended Release 500 Mg Tab) 1,500 mg PO HS LEEROY Stop: 09/02/22 21:59 Hydroxyzine HCl (Hydroxyzine Hcl 25 Mg Tab) 25 mg PO Q4H PRN PRN Reason: Anxiety Stop: 08/29/22 17:46 Lorazepam (Lorazepam 0.5 Mg Tab) 0.5 mg PO Q6 PRN PRN Reason: Anxiety Stop: 08/29/22 17:49 Last Admin: 07/30/22 23:29 Dose: 0.5 mg Magnesium Hydroxide (Magnesium Hydroxide Susp 30 Ml Udc) 30 ml PO DAILY PRN PRN Reason: Constipation Stop: 08/29/22 17:46 Olanzapine (Olanzapine 10 Mg Tab) 10 mg PO HS [facility] Stop: 08/31/22 21:59 Last Admin: 08/02/22 21:38 Dose: 10 mg Olanzapine (Olanzapine 5 Mg Tablet) 5 mg PO BID PRN PRN Reason: anxiety/agitation/insomnia Stop: 08/29/22 17:48 Petrolatum (Butt Paste (Zinc Oxide 16%) 171 Appln/57 Gm Jar) 1 appln EXT BID LEEROY Stop: 08/31/22 14:04 Last Admin: 08/03/22 09:09 Dose: 1 appln Sodium Chloride (Sodium Chloride 0.65% Na Soln 45 Ml ([place])) 1 - 2 sprays NA PRN PRN PRN Reason: Nasal Dryness/Congestion Stop: 08/29/22 17:46 Terbinafine HCl (Terbinafine Cr 30 Gm Tube) 1 appln EXT BID LEEROY Stop: 09/01/22 10:59 Last Admin: 08/03/22 09:09 Dose: 1 appln Mental Health & Subst Abuse Tx Psychiatrist Name of Psychiatrist: JASEN Shahid Psychiatrist's Date of Appointment with Psychiatrist: 09/02/22 Time of Appointment with Psychiatrist: 9:00 AM Psychiatric Appointment Comment: This appointment is via telehealth. Therapist Name of Therapist: Edward Donald Therapist's Time of Therapist Appointment: [address], [address], [place] [address] Therapy Appointment Comment: Please call after discharge to schedule. Post Discharge Appointments Primary Care Physician Name Of Family Doctor: [facility] Time of Appointment with PCP: Please follow-up with your PCP as needed. Provider Appointment Comment: [facility] Contact Information Discharge Discharge Address: [address] [place] [id number] (1) Psychosis Psychosis type: unspecified psychosis type Qualified Code(s): F29 - Unspecified psychosis not due to a substance or known physiological condition
[2022-08-03] MEDS: OLANZapine 10 MG TAB PO SCH (21:01)
[2022-08-03] MEDS ORDERED: DIVALPROEX EXTENDED RELEASE 500 MG TAB PO SCH (22:00)
[2022-08-04] MEDS: TERBINAFINE CR 30 GM TUBE EXT SCH (08:15)
[2022-08-04] MEDS: BUTT PASTE (ZINC OXIDE 16%) 171 APPLN/57 GM JAR EXT SCH (08:15)
[2022-08-04 09:31] LABS: Chol HDL Ratio 3.8 (0-5)
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
[2022-08-04] MEDS ORDERED: DESTROY THIS MEDICATION ONE (12:33)
== END 2022-08-04 15:45 | disposition home or self-care (01) | DRG 885 ==
LOC: ED 13:58 → SUATTDRO 17:05 → 3S 17:05